=== PATIENT | female | born 1985 | race Caucasian/White ===

== ENCOUNTER → 2018-01-04 | Emergency (ER) | payer OTHER ==
[~2018-01-04] VITALS: Ht 162.6 cm; Wt 50.8 kg
== END | disposition home or self-care (01) ==
LOC: ER 09:07
DX: O26.891 Other specified pregnancy related conditions, first trimester (principal); M54.5 Low back pain; Z34.81 Encounter for supervision of other normal pregnancy, first trimester

== ENCOUNTER 2018-06-16 12:48 | Outpatient (CLI) | payer OTHER ==
[~2018-06-16 12:48] MED LIST: PRENATAL + DHA1 EAC1
== END 2018-06-17 11:10 | disposition home or self-care, planned readmission (81) ==
LOC: OBS/DEL 12:48
DX: O60.03 Preterm labor without delivery, third trimester (principal); O76 Abnormality in fetal heart rate and rhythm complicating labor and delivery; Z34.03 Encounter for supervision of normal first pregnancy, third trimester

== ENCOUNTER 2018-09-03 05:15 | Inpatient (IN) | payer OTHER ==
[~2018-09-03] VITALS: Ht 162.6 cm; Wt 74.8 kg
== END 2018-09-05 10:07 | disposition home or self-care (01) | DRG 807 ==
LOC: OB/GYN 05:15 → LDR 05:15 → OB/GYN 17:45
PROC: 10E0XZZ Delivery of Products of Conception, External Approach (ICD-10-PCS; principal; 2018-09-03)
PROC: 0HQ9XZZ Repair Perineum Skin, External Approach (ICD-10-PCS; 2018-09-03)
PROC: 3E033VJ Introduction of Other Hormone into Peripheral Vein, Percutaneous Approach (ICD-10-PCS; 2018-09-03)
PROC: 4A1HXCZ Monitoring of Products of Conception, Cardiac Rate, External Approach (ICD-10-PCS; 2018-09-03)
DX: O70.0 First degree perineal laceration during delivery (principal); Z37.0 Single live birth; Z3A.40 40 weeks gestation of pregnancy

== ENCOUNTER 2018-09-06 10:18 | Emergency (ER) | payer OTHER ==
[~2018-09-06] VITALS: Ht 162.6 cm; Wt 72.6 kg
== END 2018-09-06 13:37 | disposition home or self-care (01) ==
LOC: ER 10:18
DX: K64.4 Residual hemorrhoidal skin tags (principal)